=== PATIENT | male | born 1935 | race Caucasian/White ===

== ENCOUNTER 2017-02-19 11:03 | Inpatient (IN) | payer OTHER ==
[~2017-02-19] VITALS: Ht 167.6 cm; Wt 64.6 kg
--- NOTE | ~2017-02-19 | EKG ---
[place], [place] ELECTROCARDIOGRAM REPORT NAME: RICO CATALAN UNIT #: [id number] ROOM: 523 DOCTOR: MESFIN ESCALANTE MD BIRTHDATE: [birth year] DOS: 02/20/2017 STUDY DONE: 02/20/2017. TIME: 17:00 p.m. Normal sinus rhythm, left ventricular hypertrophy with secondary ST and T-wave changes, abnormal electrocardiogram. MESFIN ESCALANTE MD CM:EKGRPT:ELECTROCARDIOGRAM REPORT [id number] MESFIN ESCALANTE MD
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
--- NOTE | ~2017-02-19 | PR ---
[place], [place] [facility]GRESS NOTE [id number] UNIT #: [id number] ROOM: 523 DOCTOR: KISHOR HEREDIA MD BIRTHDATE: [birth year] DOS: 02/22/2017 SUBJECTIVE: The patient is resting comfortably, does not have any complaints today, wants to go home. PHYSICAL EXAMINATION: VITAL SIGNS: Graphic trend shows a pressure of 127/73, pulse of 77, respirations 20, temperature 98.4. LUNGS: Diminished breath sounds, clear this morning. HEART: Regular. ABDOMEN: Obese with minimal redness in the PEG tube site. EXTREMITIES: Without any edema. LABORATORY DATA: Chest x-ray yesterday showed decreased vascular congestion, atelectasis, right side atelectasis. Basic metabolic panel this morning, glucose 169, BUN 38, creatinine 1.09, sodium 147, potassium 3.4. ASSESSMENT AND PLAN: 1. Acute diastolic congestive heart failure. The patient will be ordered an echocardiogram tomorrow since he has not had one since last year. The diuretic dosage has been cut down because of the rising BUN. He is diuresed nicely and the congestive heart failure seems to be resolving. 2. Right lower-lobe infiltrate on IV antibiotics. 3. MRSA of the nares on Bactroban ointment. The patient is high risk for aspirations, got the PEG tube going, has PEG tube with PEG feeding, which he is tolerating well. He is going to have a speech study tomorrow, then after that is done, should be able to go back home. KISHOR HEREDIA MD CM:PNTRANS [phone] KISHOR HEREDIA MD 02/23/17 1023 interface
--- NOTE | ~2017-02-19 | PR ---
[place], [place] PROGRESS NOTE NAME: RICO CATALAN [facility] #: [id number] UNIT #: [id number] ROOM: 523 DOCTOR: KISHOR HEREDIA MD BIRTHDATE: [birth year] DOS: SUBJECTIVE: The patient is about the same, does not have any new complaints. OBJECTIVE: VITAL SIGNS: Graphic trend shows a blood pressure 132/84, pulse of 98, respirations 20, temperature 98.1. LUNGS: Diminished breath sounds, scattered rhonchi. HEART: Regular. ABDOMEN: Obese. PEG tube in place. EXTREMITIES: Without any edema. ASSESSMENT AND PLAN: 1. Acute exacerbation of chronic obstructive pulmonary disease, on IV steroids. 2. Acute diastolic congestive heart failure, on diuretics. Echocardiogram is pending. 3. Swallowing with possibility of aspiration will need to be raised, we will ask Speech for an evaluation. 4. Hypokalemia. Supplementation to be given. KISHOR HEREDIA MD CM:PNTRANS [phone] KISHOR HEREDIA MD 02/22/17 0059 interface
--- NOTE | ~2017-02-19 | PR ---
[place], [place] PROGRESS NOTE NAME: RICO CATALAN [facility] #: [id number] UNIT #: [id number] ROOM: 523 DOCTOR: KISHOR HEREDIA MD BIRTHDATE: [birth year] DOS: 02/24/2017 SUBJECTIVE: The patient is doing fine without any complaints this morning. OBJECTIVE: VITAL SIGNS: Graphic trend shows a pressure of 126/68, pulse of 81, respirations 20, temperature 98.0. LUNGS: Clear. HEART: Regular. ABDOMEN: Obese, soft with a PEG in place. EXTREMITIES: Without any edema. LABORATORY DATA: This morning shows a BMP: Glucose 117, BUN 35, creatinine 0.90. Electrolytes were normal. WBC count is 5.8, hemoglobin 11.2, hematocrit 36.7. Routine culture of the PEG site is revealing Klebsiella pneumoniae, which is sensitive to floxins. Chest x-ray shows clearing of the right lower lobe pneumonia. ASSESSMENT AND PLAN: 1. Acute diastolic congestive heart failure, improved and stable. 2. Right basilar atelectasis with pneumonia with partial clearing. 3. High risk of aspiration. 4. Klebsiella pneumoniae of the PEG site. The patient is stable and can be discharged on p.o. antibiotics and diuretics. KISHOR HEREDIA MD CM:PNTRANS [id number] KISHOR HEREDIA MD 02/25/17 0046 interface
--- NOTE | ~2017-02-19 | DS ---
[place], [place] DISCHARGE SUMMARY NAME: RICO CATALAN [facility] #: [id number] UNIT #: [id number] ROOM: 523 DOCTOR: KISHOR HEREDIA MD BIRTHDATE: [birth year] DOS: 02/24/2017 DIAGNOSES: 1. Pneumonia right lower lobe, improved. 2. Diastolic congestive heart failure. 3. Methicillin-resistant Staphylococcus aureus of the nares. 4. Klebsiella of the PEG site. 5. Encephalopathy, possible hypoxic. 6. High risk for aspiration. 7. Chronic obstructive pulmonary disease with chronic respiratory failure, oxygen dependent. HOSPITAL COURSE: The patient is very well known to us, comes in with complaints of difficulty breathing. Please refer to H and P dictated by Dr. Granados for further details. He was found to have acute diastolic CHF and was placed on diuretics. Chest x-ray also showed a right lower lobe pneumonia, the patient also was placed on IV antibiotics. Cultures of the nares as well as PEG site was ordered. The PEG site appears to be slightly red. DVT prophylaxis was given. The patient was seen by Dr. Lane, his group, and agreed with the treatment plan. Echocardiogram was ordered and I do not have the results yet. The repeat chest x-ray shows clearing of the pneumonia and the CHF. Speech Therapy did see him and suggested continued n.p.o. status until when that he can start pureed diet when he goes home and his strength improves. This morning, his repeat chest x-ray shows clearing. His labs are all within normal limits. The plan therefore is to discharge him to home to follow up as an outpatient. DISCHARGE MEDICATIONS: Will be metoprolol 25 b.i.d., Bactroban ointment for local application twice a day to the nares and the PEG site, Bumex 1 mg daily, Cipro 500 b.i.d. for 5 days, Plavix 75 daily, temazepam 30 at bedtime, omeprazole 20 daily, vitamin D 50,000 units once a week, citalopram 40 daily, budesonide 0.5 b.i.d., fenofibrate 200 mg daily, DuoNeb q.i.d. p.r.n., [place] 5 every day p.r.n., Xanax 0.5 twice daily p.r.n. [place], [place] DISCHARGE SUMMARY NAME: RICO CATALAN UNIT #: [id number] ROOM: 523 DOCTOR: KISHOR HEREDIA MD BIRTHDATE: [birth year] KISHOR HEREDIA MD CM:DISCHHONG [id number] KISHOR HEREDIA MD 02/24/17 1546 interface
--- NOTE | ~2017-02-19 | PR ---
[place], [place] PROGRESS NOTE NAME: RICO CATALAN [facility] #: [id number] UNIT #: [id number] ROOM: 523 DOCTOR: KISHOR HEREDIA MD BIRTHDATE: [birth year] DOS: 02/23/2017 SUBJECTIVE: The patient is about the same, does not have any new complaints. OBJECTIVE: VITAL SIGNS: Graphic trend shows a pressure of 144/89, pulse of 101, respirations 20, temperature 98.6. LUNGS: Clear. HEART: Regular. ABDOMEN: Obese, soft. EXTREMITIES: Without any edema. ASSESSMENT AND PLAN: 1. Acute diastolic congestive heart failure, improved. 2. Right lower lobe pneumonia with possible aspiration, which is also clinically much improved. We will repeat a chest x-ray today to make sure it is clearing. 3. High risk of aspiration. Speech did do work on him this morning. They felt that the patient could start back on his pleasure feeds when he gets home. Otherwise, continue his n.p.o. status. Plan to discharge him to home tomorrow. Routine labs and chest x-ray will be ordered today. KISHOR HEREDIA MD CM:PNTRANS [id number] KISHOR HEREDIA MD 02/24/17 0754 interface
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
[~2017-02-19 11:03] MED LIST: 'XANAX0.5 MG PO; ACYCLOVIR400 MG PO; ANAPROX DS550 MG PO; ARTIFICIAL TEA1 EACH OP; BACTROBAN OINT0.9 GM NAS; CEFUROXIME AXE250 MG PO; CELEXA20 MG PO; CELEXA40 MG PO; CIPRO500 MG PO; CIPROFLOXACIN500 M4 PO; CLOPIDOGREL BIS75 MG PO; DARVOCET N 1001 TAB PO; DELTASONE10 MG PO; DIFLUCAN100 MG PO; DUONEB 3 MG/3 ML3 M1 INH; FA-8800 MCG; FISH OIL 1,2001 EAC1 PO; FOLIC ACID0.4 MG PO; FUROSEMIDE20 M1 PO; GEMCOR600 MG PO; HYCODAN/HYDROMET5 ML PO; HYDROCODONE/ACE1 T14 PO; LEVOFLOXACIN500 MG PO; MAREPA1200 MG PO; MUCINEX600 MG PO; Motrin,Rufen400 MG PO; NOVAPLUS SOLU-M40 MG IV; OMEPRAZOLE D/R20 MG PO; PHARMASSURE FO0.4 MG PO; PREDNISONE2.5 MG PO; PRILOSEC20 M2 PO; PULMICORT RESP0.5 MG INH; PULMICORT0.5 MG/2 M NEB; RESTORIL30 MG PO; SERTRALINE50 MG PO; SIMVASTATIN10 MG PO; TRICOR145 MG PO; TRICOR48 MG PO; VANCO 1 GR1 GM/250 M IV; VANCO 750750 MG/250 IV; VITAMIN D1000 IU PO; VITAMIN D50000 I3 PO; ZOCOR10 MG PO; ZOLOFT100 MG PO
[2017-02-19 11:16] VITALS: BP 116/73
[2017-02-19 11:58] LABS: BASO % 0.2 % (0.0-1.0); EOS # 0.3 10*3/uL (0.0-0.4); EOS % 4.5 % (1.0-4.0); HEMATOCRIT 36.5 % (42.0-52.0); HEMOGLOBIN 11.3 g/dl (14.0-18.0); LYMPH # 1.1 10*3/uL (1.3-4.4); LYMPH % 19.2 % (27.0-41.0); MEAN CORPUSCULAR HGB 27.6 pg (27.0-31.0); MEAN PLATELET VOLUME 13.8 fl (9.6-12.3); MONO # 0.5 10*3/uL (0.1-1.0); MONO % 8.2 % (3.0-9.0); NEUT # 3.8 10*3/uL (2.3-7.9); NEUT % 67.7 % (47.0-73.0); PLATELET COUNT AUTOMATED 101 10*3/uL (130-400); RED CELL DISTRI WIDTH 15.1 % (0-14.5); WHITE BLOOD COUNT 5.6 10*3/uL (4.8-10.8)
[2017-02-19 12:14] LABS: ALBUMIN 3.4 gm/dl (3.1-4.5); ALKALINE PHOSPHATASE 50 U/L (45-117); BILIRUBIN, TOTAL 0.4 mg/dl (0.2-1.0); BUN 21 mg/dl (7-24); CARBON DIOXIDE 28 mmol/L (21-32); CHLORIDE 104 mmol/L (98-107); EST GLOM FILT AFRICAN AMERICAN > 60 ml/min; GLUCOSE 155 mg/dL (65-99); POTASSIUM 3.8 mmol/L (3.5-5.1); SGOT/AST 17 IU/L (3-35); SGPT/ALT 15 U/L (12-78); SODIUM 140 mmol/L (136-145); TOTAL PROTEIN 7.1 gm/dL (6.4-8.2)
[2017-02-19 13:01] LABS: BILIRUBIN NEGATIVE (NEGATIVE); BLOOD NEGATIVE (NEGATIVE); CLARITY SL CLOUDY (CLEAR); COLOR YELLOW (YELLOW); GLUCOSE NEGATIVE (NEGATIVE); KETONE NEGATIVE (NEGATIVE); LEUKO ESTERASE NEGATIVE (NEGATIVE); NITRITE NEGATIVE (NEGATIVE); PH 5.5 (5.0-9.0); PROTEIN NEGATIVE (NEGATIVE); SPECIFIC GRAVITY <= 1.005 (1.005-1.030); UROBILINOGEN 0.2 E.U./dl (0.2-1.0)
[2017-02-19 13:08] LABS: BACTERIA TRACE; EPITHELIAL CELLS 0-2; URINE REFLEX COMMENT NO (NO)
[2017-02-19 14:57] VITALS: BP 108/66
[2017-02-19 20:46] VITALS: BP 100/59
[2017-02-20] VITALS: BP 106/65
[2017-02-20 06:46] LABS: BUN 27 mg/dl (7-24); CARBON DIOXIDE 29 mmol/L (21-32); CHLORIDE 102 mmol/L (98-107); EST GLOM FILT AFRICAN AMERICAN > 60 ml/min; GLUCOSE 132 mg/dL (65-99); POTASSIUM 3.8 mmol/L (3.5-5.1); SODIUM 141 mmol/L (136-145)
[2017-02-20 08:00] VITALS: BP 108/82
[2017-02-20 12:00] VITALS: BP 125/80
[2017-02-20 16:00] VITALS: BP 131/69
[2017-02-20 20:00] VITALS: BP 124/77
[2017-02-21] VITALS: BP 132/84
[2017-02-21 06:53] LABS: CARBON DIOXIDE 31 mmol/L (21-32); CHLORIDE 105 mmol/L (98-107); EST GLOM FILT AFRICAN AMERICAN > 60 ml/min; GLUCOSE 153 mg/dL (65-99); POTASSIUM 3.4 mmol/L (3.5-5.1); SODIUM 145 mmol/L (136-145)
[2017-02-21 07:09] LABS: BUN 36 mg/dl (7-24)
[2017-02-21 08:00] VITALS: BP 122/80
[2017-02-21 12:00] VITALS: BP 121/76
[2017-02-21 16:00] VITALS: BP 133/81
[2017-02-21 20:00] VITALS: BP 106/60
[2017-02-22] VITALS: BP 127/73
[2017-02-22 06:17] LABS: BUN 38 mg/dl (7-24); CARBON DIOXIDE 30 mmol/L (21-32); CHLORIDE 106 mmol/L (98-107); EST GLOM FILT AFRICAN AMERICAN > 60 ml/min; GLUCOSE 169 mg/dL (65-99); POTASSIUM 3.4 mmol/L (3.5-5.1); SODIUM 147 mmol/L (136-145)
[2017-02-22 08:00] VITALS: BP 102/90
[2017-02-22 12:00] VITALS: BP 116/65
[2017-02-22 16:00] VITALS: BP 127/78
[2017-02-22 20:00] VITALS: BP 113/53
[2017-02-23] VITALS: BP 97/63
[2017-02-23 06:47] LABS: BASO % 0.2 % (0.0-1.0); EOS # 0.3 10*3/uL (0.0-0.4); EOS % 4.3 % (1.0-4.0); HEMATOCRIT 38.2 % (42.0-52.0); HEMOGLOBIN 11.7 g/dl (14.0-18.0); LYMPH # 1.4 10*3/uL (1.3-4.4); LYMPH % 22.7 % (27.0-41.0); MEAN CELL VOLUME 90.7 fl (80.0-94.0); MEAN CORPUSCULAR HGB 27.8 pg (27.0-31.0); MEAN CORPUSCULAR HGB CONC 30.6 g/dl (33.0-37.0); MONO # 0.6 10*3/uL (0.1-1.0); NEUT % 63.6 % (47.0-73.0); PLATELET COUNT AUTOMATED 95 10*3/uL (130-400); RED BLOOD COUNT 4.21 10*6/uL (4.50-5.90); RED CELL DISTRI WIDTH 15.2 % (0-14.5); WHITE BLOOD COUNT 6.3 10*3/uL (4.8-10.8)
[2017-02-23 07:12] LABS: EST GLOM FILT AFRICAN AMERICAN > 60 ml/min
[2017-02-23 08:00] VITALS: BP 140/74
[2017-02-23 12:00] VITALS: BP 144/89
[2017-02-23] MEDS ORDERED: BACTROBAN OINT0.9 GM NAS (14:07)
[2017-02-23] MEDS ORDERED: METOPROLOL SUCC25 M2 PO (14:07)
[2017-02-23] MEDS ORDERED: BACTROBAN OINT0.9 GM T (14:07)
[2017-02-23] MEDS ORDERED: DOXYCYCLINE100 M3 PO (14:08)
[2017-02-23] MEDS ORDERED: BUMETANIDE1 MG PO (14:08)
[2017-02-23 16:00] VITALS: BP 133/69
[2017-02-23 20:00] VITALS: BP 135/78
[2017-02-24] VITALS: BP 126/68
[2017-02-24 07:03] LABS: BASO % 0.2 % (0.0-1.0); EOS # 0.2 10*3/uL (0.0-0.4); EOS % 4.1 % (1.0-4.0); HEMATOCRIT 36.7 % (42.0-52.0); HEMOGLOBIN 11.2 g/dl (14.0-18.0); LYMPH # 1.2 10*3/uL (1.3-4.4); LYMPH % 20.5 % (27.0-41.0); MEAN CELL VOLUME 90.2 fl (80.0-94.0); MEAN CORPUSCULAR HGB 27.5 pg (27.0-31.0); MEAN CORPUSCULAR HGB CONC 30.5 g/dl (33.0-37.0); MEAN PLATELET VOLUME 13.9 fl (9.6-12.3); MONO # 0.5 10*3/uL (0.1-1.0); MONO % 8.1 % (3.0-9.0); NEUT # 3.9 10*3/uL (2.3-7.9); NEUT % 66.8 % (47.0-73.0); PLATELET COUNT AUTOMATED 94 10*3/uL (130-400); RED BLOOD COUNT 4.07 10*6/uL (4.50-5.90); RED CELL DISTRI WIDTH 15.3 % (0-14.5); WHITE BLOOD COUNT 5.8 10*3/uL (4.8-10.8)
[2017-02-24 07:15] LABS: BUN 35 mg/dl (7-24); CARBON DIOXIDE 28 mmol/L (21-32); CHLORIDE 111 mmol/L (98-107); EST GLOM FILT AFRICAN AMERICAN > 60 ml/min; GLUCOSE 117 mg/dL (65-99); POTASSIUM 3.7 mmol/L (3.5-5.1); SODIUM 144 mmol/L (136-145)
[2017-02-24] MEDS ORDERED: CIPRO500 MG PO (07:24)
[2017-02-24 08:00] VITALS: BP 132/72
== END 2017-02-24 11:38 | disposition home health service (06) | DRG 177 ==
LOC: ED 11:03 → EDHOLD 15:13 → 5E 15:13
PROVIDERS: Internal Medicine; Internal Medicine Critical Care Medicine; Registered Nurse
DX: J69.0 Pneumonitis due to inhalation of food and vomit (principal); G93.41 Metabolic encephalopathy; I50.31 Acute diastolic (congestive) heart failure; J96.11 Chronic respiratory failure with hypoxia; G93.1 Anoxic brain damage, not elsewhere classified; J44.1 Chronic obstructive pulmonary disease with (acute) exacerbation; R13.12 Dysphagia, oropharyngeal phase; I11.0 Hypertensive heart disease with heart failure; B95.62 Methicillin resistant Staphylococcus aureus infection as the cause of diseases classified elsewhere; B96.1 Klebsiella pneumoniae [K. pneumoniae] as the cause of diseases classified elsewhere; G89.29 Other chronic pain; F17.210 Nicotine dependence, cigarettes, uncomplicated; F32.9 Major depressive disorder, single episode, unspecified; I25.10 Atherosclerotic heart disease of native coronary artery without angina pectoris; E87.6 Hypokalemia; M54.9 Dorsalgia, unspecified; Z96.642 Presence of left artificial hip joint; Z85.46 Personal history of malignant neoplasm of prostate; Z95.1 Presence of aortocoronary bypass graft; Z99.81 Dependence on supplemental oxygen; Z95.0 Presence of cardiac pacemaker; Z88.2 Allergy status to sulfonamides; Z93.1 Gastrostomy status

== ENCOUNTER → 2017-05-29 | Outpatient (CLI) | payer OTHER ==
[~2017-05-29] MED LIST changes: +BACTROBAN OINT0.9 GM T; +BUMETANIDE1 MG PO; +DOXYCYCLINE100 M3 PO; +METOPROLOL SUCC25 M2 PO
--- NOTE | ~2017-05-29 | SLPPN ---
[place], [place] [employer] PROGRESS NOTE NAME: RICO CATALAN UNIT #: [id number] ROOM: DOCTOR: KISHOR HEREDIA MD Speech Language Pathology Treatment Note Page 1 1 of Patient Name: RICO CATALAN Date: 05/29/2017 03:27 PM : 1935 SOC Date: 05/28/2017 Provider: [facility] Provider #: [id number] Treating Clinician: Maria Victoria Tyler CCC=[employer] Referring Physician: KISHOR HEREDIA Onset Date Description Code Primary Diagnosis: 12/14/2015 787.22 DYSPHAGIA, OROPHARYNGEAL PHASE Time In: 11:00 AM Time Out: 12:00 PM [employer] Interventions and CPT Codes Consisted of: CPT Code Modifiers Minutes Units MOTION FLUOROSCOPY/SWALLOW 91212 60 1 Total Minutes: 60 Total Timed Minutes: 0 Total Untimed Minutes: 60 Total Units: 1 Total Timed Units: 0 Total Untimed Units: 1 05/29/2017 3:27:58 PM Maria Victoria Tyler CCC=[employer] Date/Time State License #: [id number] CM:CHIVO [id number] [facility] THERAPY [place]
--- NOTE | ~2017-05-29 | SLPIE ---
[place], [place] ELECTROMECHANIC INITIAL EVALUATION NAME: RICO CATALAN UNIT #: [id number] ROOM: DOCTOR: KISHOR HEREDIA MD Speech Language Pathology Initial Evaluation Page 1 1 of Patient Name: RICO CATALAN Date: 05/29/2017 03:24 PM : 1935 SOC Date: 05/28/2017 [facility] Provider #: [id number] Treating Clinician: Maria Victoria Tyler CCC=ELECTROMECHANIC Referring Physician: KISHOR HEREDIA Patient Information Address: [address] [place] [address] Physician: KISHOR HEREDIA Physician #: [facility], [facility], Zip: [place], [place] [address] Occupation: Unknown # of Approved Visits: 0 Gender: Male Package Reinspector: BAYLEE CATALAN Rehabilitation Information / History Onset Date Code Description Primary Diagnosis: 12/14/2015 787.22 DYSPHAGIA, OROPHARYNGEAL PHASE Subjective Comments: Patient identified by name and date of . Initial evaluation created to initiate the electronic medical record. Please see [employer] for details. Clinical Findings Functional Goals Functional Limitation Reporting Swallowing G8996 - Swallowing functional limitation, current status at therapy episode outset and at reporting intervals Current Status: CM - At least 80 percent but less than 100 percent impaired, limited or restricted G8997 - Swallowing functional limitation, projected goal status, at therapy episode outset, at reporting intervals, and at discharge or to end reporting Goal Status: CM - At least 80 percent but less than 100 percent impaired, limited or restricted G8998 - Swallowing functional limitation, discharge status, at discharge from therapy or to end reporting Discharge Status: CM - At least 80 percent but less than 100 percent impaired, limited or restricted 05/29/2017 3:27:05 PM Maria Victoria Tyler CCC=ELECTROMECHANIC Date/Time [place], [place] ELECTROMECHANIC INITIAL EVALUATION NAME: RICO CATALAN UNIT #: [id number] ROOM: DOCTOR: KISHOR HEREDIA MD [facility] License #: [id number] CM:CARLOS [id number] IS THERAPY [facility]
--- NOTE | ~2017-05-29 | PROC NOTE ---
[place], [place] PROCEDURE NOTE [id number] UNIT #: [id number] ROOM: DOCTOR: KRISTAN RANDALL BIRTHDATE: [birth year] DOS: 05/29/2017 MODIFIED BARIUM SWALLOW BACKGROUND HISTORY AND MEDICAL HISTORY: The patient is very familiar to the speech pathology department here in [facility]. He has had several modified barium swallows with the last one completed in 12/2016 with recommendations to continue n.p.o. status; however, to have small pleasure feed trials of pureed as tolerated. The patient was receiving extensive dysphagia therapy in the home environment, but was discharged around December or January 2017 due to plateauing and meeting his max potential. METHODS AND MATERIALS: The patient was able to sit in a regular chair and was viewed in the lateral plane. This study was done in conjunction with Dr. Stauffer. The patient was able to follow simple commands. He was administered applesauce mixed with barium paste, pudding mixed with barium paste, a banana mixed with barium paste, and honey liquid via cup. ORAL PHASE: The patient demonstrated [id number]-[id number] reduced oral phase with moderate to severely poor ability to form and propel a cohesive bolus. The applesauce was moderately impaired and he had some premature loss into the vallecula during oral prep, it was piecemeal deglutition, not a nice bolus. However, the swallow was triggered in the vallecula within 3 seconds when it filled up and there was mild residue in the vallecula. ENGINEER AND GEOLOGIST cued him to take a dry swallow and it did clear to trace amounts. Honey consistency fell with severely reduced bolus cohesion into the pharyngeal phase with severely reduced ability to form and propel cohesive bolus. The patient was given a banana with barium paste. He was edentulous, reported he forgot his dentures and was unable to chew it and requested to spit it out. He then had a mild to moderate amount of residue in his mouth, which was barium, which a few were fell below was aspirated and it was suspected on the paste during the swallow silently. PHARYNGEAL PHASE: The patient demonstrated mild vallecula residue with puree textures, which was cleared to trace amounts with ENGINEER AND GEOLOGIST cues for dry effortful swallows. There was no aspiration or penetration on the pureed. The patient did aspirate during the swallow silently but it was suspected on residue from the barium paste with the banana. He spit the banana out and then swallowed, some barium paste from the banana was aspirated silently during the swallow in a moderate amount. The patient aspirated a moderate amount of honey liquid during the swallow with severely reduced oral control as well as reduced laryngeal elevation silently, no cough, no throat clear. RECOMMENDATIONS AND IMPRESSION: Based on the above, the recommendations remain the same that the patient should continue with pleasure feeds of pureed foods as tolerated, should be monitored by a physician for clinical signs and symptoms of aspiration. It is recommended the patient continue with enteral means of nutrition and hydration, especially hydration as he is not able to tolerate any liquids and he will not be able to maintain hydration orally. Thank you for this referral. Therapy is not recommended as the patient has been [place], [place] PROCEDURE NOTE NAME: RICO CATALAN UNIT #: [id number] ROOM: DOCTOR: KRISTAN RANDALL BIRTHDATE: [birth year] seen for extensive dysphagia therapy and has not made any progress and was discharged around December and January with no changes and no progress noted. Thank you for this referral. KRISTAN RANDALL CM:PROCNOTE:PROCEDURE NOTE [id number] KRISTAN RANDALL
--- NOTE | ~2017-05-29 | SLPPOC ---
[place], [place] TANK INSULATOR RUBBER PLAN OF CARE NAME: IRCO CATALAN UNIT #: [id number] ROOM: DOCTOR: KISHOR HEREDIA MD Speech Language Pathology Plan of Care Page 1 1 (Initial Evaluation) of Patient Name: RICO CATALAN Date: 05/29/2017 03:24 PM : 1935 SOC Date: 05/28/2017 [facility] Provider #: [id number] Treating Clinician: Maria Victoria Tyler CCC=TANK INSULATOR RUBBER Referring Physician: KISHOR HEREDIA Visits From SOC: 1 Onset Date Description Code Primary Diagnosis: 12/14/2015 787.22 DYSPHAGIA, OROPHARYNGEAL PHASE Subjective Comments: Patient identified by name and date of . Initial evaluation created to initiate the electronic medical record. Please see [employer] for details. Initial Level Goals Functional Limitation Reporting Swallowing G8996 - Swallowing functional limitation, current status at therapy episode outset and at reporting intervals Current Status: CM - At least 80 percent but less than 100 percent impaired, limited or restricted G8997 - Swallowing functional limitation, projected goal status, at therapy episode outset, at reporting intervals, and at discharge or to end reporting Goal Status: CM - At least 80 percent but less than 100 percent impaired, limited or restricted G8998 - Swallowing functional limitation, discharge status, at discharge from therapy or to end reporting Discharge Status: CM - At least 80 percent but less than 100 percent impaired, limited or restricted 05/29/2017 3:27:05 PM KISHOR HEREDIA Date/Time Maria Victoria Tyler CCC=TANK INSULATOR RUBBER Date I certify the need for these services furnished under this plan of treatment while under my care. State License #: [id number] CM:MAURISIOPOC [id number] 1535 IS THERAPY [facility]
== END | disposition home or self-care (01) ==
LOC: RAD/SH 05-28 02:58
DX: R13.10 Dysphagia, unspecified (principal)

== ENCOUNTER 2017-06-12 09:42 | Emergency (ER) | payer OTHER ==
[~2017-06-12] VITALS: Wt 68.9 kg
[2017-06-12 09:51] VITALS: BP 128/79
== END 2017-06-12 13:40 | disposition home or self-care (01) ==
LOC: ED 09:42
DX: S32.000A Wedge compression fracture of unspecified lumbar vertebra, initial encounter for closed fracture (principal); R03.0 Elevated blood-pressure reading, without diagnosis of hypertension; I50.9 Heart failure, unspecified; F17.200 Nicotine dependence, unspecified, uncomplicated; J44.9 Chronic obstructive pulmonary disease, unspecified; Z88.2 Allergy status to sulfonamides; Z79.899 Other long term (current) drug therapy; W22.03XA Walked into furniture, initial encounter; Y93.89 Activity, other specified; Y92.9 Unspecified place or not applicable; Y99.9 Unspecified external cause status

== ENCOUNTER → 2017-07-01 | Day surgery (SDC) | payer OTHER ==
[~2017-07-01] VITALS: Ht 167.6 cm; Wt 68.5 kg
--- NOTE | ~2017-07-01 | O ---
[place], [place] OPERATIVE NOTE NAME: RICO CATALAN UNIT #: [id number] ROOM: DOCTOR: MOI DIA MD BIRTHDATE: [birth year] DOS: GASTROENDOSCOPIC REPORT. INDICATIONS: This is an 81-year-old patient who has presented with chief complaint of dysphagia, was attempting to eat. He wants his PEG tube out; however, we have discussed with his . Apparently, the is concerned that there is a new change in his dysphagia issues and he has not been able to at all taking any food down. ALLERGIES: SULFA. FAMILY HISTORY: Noncontributory. PAST MEDICAL HISTORY: Hypertension, diabetes mellitus, hypercholesterolemia, dementia, wheelchair bound, neurogenic dysphagia, CVA. PAST SURGICAL HISTORY: Pacemaker, PEG tube and left hip. PROCEDURE: Today's procedure part of investigation is panendoscopy plus brush esophagus sampling. PREMEDICATIONS: Versed and Diprivan. SCOPE: Olympus XQ-10 video pediatric. REPORT: After putting the patient in the left lateral position and after application of lubricant to the scope, the scope was introduced. Thereafter, under direct visualization, I advanced throughout the length of the esophagus with some difficulty because of upper esophageal stricture. However, esophagus expresses diffuse esophageal moniliasis. Pioneer for fungal study was done. Gastric pouch was entered. Duodenal bulb, second and third part within normal limits. Photographic series from esophagus was obtained. Gastritis noticed. The patient extubated, tolerated procedure well. IMPRESSION: Upper esophageal stricture, esophageal moniliasis, status post brush for fungal study. PLAN: 1. We will keep the PEG tube in place since it is intact and he needs for his nutrition. 2. I am going to give him 100 mg of Diflucan 1 every day for 10 days and follow up as outpatient. [place], [place] OPERATIVE NOTE NAME: RICO CATALAN UNIT #: [id number] ROOM: DOCTOR: MOI DAI MD BIRTHDATE: [birth year] MOI DIA MD CM:OPRECORD:OPERATIVE NOTE [id number] KISHOR DIA MD 07/01/17 1249 interface
[2017-07-01 08:08] VITALS: BP 116/71
[2017-07-01 08:56] VITALS: BP 113/58
[2017-07-01 09:11] VITALS: BP 127/67
== END | disposition home or self-care (01) ==
LOC: SDC 06-29 14:00
DX: K22.2 Esophageal obstruction (principal); E11.9 Type 2 diabetes mellitus without complications; E78.00 Pure hypercholesterolemia, unspecified; Z86.73 Personal history of transient ischemic attack (TIA), and cerebral infarction without residual deficits; Z95.0 Presence of cardiac pacemaker; Z99.3 Dependence on wheelchair; B37.81 Candidal esophagitis; Z88.2 Allergy status to sulfonamides; I25.10 Atherosclerotic heart disease of native coronary artery without angina pectoris; J44.9 Chronic obstructive pulmonary disease, unspecified; Z85.46 Personal history of malignant neoplasm of prostate; F41.9 Anxiety disorder, unspecified; F32.9 Major depressive disorder, single episode, unspecified; I50.9 Heart failure, unspecified; I11.0 Hypertensive heart disease with heart failure; Z95.5 Presence of coronary angioplasty implant and graft; Z98.890 Other specified postprocedural states; Z82.49 Family history of ischemic heart disease and other diseases of the circulatory system

== ENCOUNTER → 2018-01-05 | Outpatient (CLI) | payer OTHER ==
[2018-01-06 17:07] LABS: HLA CLASS 1 ANTIBODY Negative (Negative); IIb/IIIa ANTIBODY Negative (Negative); Ia/IIa ANTIBODY Negative (Negative); Ib/IX ANTIBODY Negative (Negative)
== END | disposition home or self-care (01) ==
LOC: LAB 12:50
PROVIDERS: Internal Medicine Hematology & Oncology
DX: D69.6 Thrombocytopenia, unspecified (principal)

== ENCOUNTER → 2018-03-24 | Day surgery (SDC) | payer OTHER ==
[~2018-03-24] VITALS: Ht 170.1 cm; Wt 59.9 kg
--- NOTE | ~2018-03-24 | CON ---
[place], [place] REPORT OF CONSULTATION [id number] UNIT #: [id number] ROOM: DOCTOR: IFEOMA GRESHAMMOI BIRTHDATE: [birth year] DOS: 03/24/2018 GASTROENDOSCOPIC CONSULTATION REPORT HISTORY OF PRESENT ILLNESS: The patient has presented with chief complaint of malfunctioning PEG tube. Apparently, the has been taking care of him at home. The patient is an 82-year-old with neurogenic dysphagia, status post previous PEG placement. Meanwhile, the patient has complaint of suprapubic pain, which has been found to be abscess formation. PAST MEDICAL HISTORY: Oropharyngeal dysphagia, neurogenic origin, history of esophageal stricture, status post multiple dilations, hypertension, major depression, failure to thrive, essentially bedridden, congestive heart failure, and respiratory insufficiency. PAST SURGICAL HISTORY: Prostate CA, pacemaker, PEG tube, and left hip arthroplasty. SOCIAL HISTORY: History of smoking, nonalcohol consumer. ALLERGIES: TO SULFA. MEDICATIONS: List reviewed. REVIEW OF SYSTEMS: Not much can be obtained from him meaningfully. Discussed the case with the . PHYSICAL EXAMINATION: GENERAL: Well-nourished, slow and bedridden. HEENT: Head is normocephalic, nontraumatic. Mouth, edentulous. NECK: Supple. No thyromegaly. CHEST: Symmetric anatomy, COPD pattern. HEART: Normal sinus rhythm. No gallop, no murmur. ABDOMEN: Obese, soft. Large broken PEG tube in place. Bowel sounds present. A suprapubic abscess was noticed. EXTREMITIES: Stasis dermatitis of lower extremities. NEUROLOGIC: Alert and slow; however, still oriented to his family. Broken malfunctioning PEG tube. At this stage, the sterile condition of the abdomen with Betadine, the existing broken PEG tube percutaneously pulled and OLGA LIDIA size 20 was replaced, inflated with 15 mL of normal saline. Additional straps were added around the external dish to secure the tube, patency checked. The patient extubated. The patient tolerated the procedure well. IMPRESSION: Neurogenic dysphagia, malfunctioning existing PEG tube, status post removal, replacement with a new G-tube. PLAN: Ready to be discharged and utilize the new G-tube for feedings and medications and supportive management. [place], [place] REPORT OF CONSULTATION NAME: RICO CATALAN UNIT #: [id number] ROOM: DOCTOR: IFEOMA GRESHAM,MOI BIRTHDATE: [birth year] MOI DIA MD CM:CONSTR:REPORT OF CONSULTATION 1313 03/24/18 1407 interface
[2018-03-24 10:05] VITALS: BP 131/97
[2018-03-24 12:50] VITALS: BP 155/90
[2018-03-24 13:05] VITALS: BP 149/83
== END | disposition home or self-care (01) ==
LOC: SDC 03-23 04:36
DX: K94.23 Gastrostomy malfunction (principal); R13.19 Other dysphagia; F32.9 Major depressive disorder, single episode, unspecified; I50.9 Heart failure, unspecified; I11.0 Hypertensive heart disease with heart failure; Z85.46 Personal history of malignant neoplasm of prostate; Z88.2 Allergy status to sulfonamides; L02.211 Cutaneous abscess of abdominal wall; I25.10 Atherosclerotic heart disease of native coronary artery without angina pectoris; Z95.0 Presence of cardiac pacemaker; Z86.73 Personal history of transient ischemic attack (TIA), and cerebral infarction without residual deficits; F41.9 Anxiety disorder, unspecified; Z87.891 Personal history of nicotine dependence; Z79.01 Long term (current) use of anticoagulants; Z95.1 Presence of aortocoronary bypass graft; J44.9 Chronic obstructive pulmonary disease, unspecified; Z98.890 Other specified postprocedural states

== ENCOUNTER → 2018-04-06 | Outpatient (CLI) | payer OTHER ==
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
--- NOTE | ~2018-04-06 | SLPPOC ---
[place], [place] TUBE MAN PLAN OF CARE NAME: RICO CATALAN UNIT #: [id number] ROOM: DOCTOR: MOI DIA MD Speech Language Pathology Plan of Care Page 1 1 (Initial Evaluation) of Patient Name: RICO CATALAN Date: 04/06/2018 11:38 AM : 1935 SOC Date: 04/06/2018 [facility]: [facility] Provider #: [id number] Treating Clinician: DALLAS Burger-TUBE MAN Referring Physician: MOI DIA 1 Visits From SOC: Onset Date Description Code Primary Diagnosis: 04/06/2018 A0000 NO DIAGNOSIS SENT TO THE [facility] INTERFACE Subjective Comments: Initial evaluation created to initiate the electronic medical record. Please see [employer] for details. Initial Level Goals Functional Limitation Reporting Swallowing G8996 - Swallowing functional limitation, current status at therapy episode outset and at reporting intervals Current Status: CL - At least 60 percent but less than 80 percent impaired, limited or restricted G8997 - Swallowing functional limitation, projected goal status, at therapy episode outset, at reporting intervals, and at discharge or to end reporting Goal Status: CL - At least 60 percent but less than 80 percent impaired, limited or restricted G8998 - Swallowing functional limitation, discharge status, at discharge from therapy or to end reporting Discharge Status: CL - At least 60 percent but less than 80 percent impaired, limited or restricted 04/06/2018 11:39:31 AM MOI DIA Date/Time DALLAS Burger-TUBE MAN Date I certify the need for these services furnished under this plan of treatment while under my care. State License #: [id number] CM:SLPPOC 1141 1141 IS THERAPY [facility]
--- NOTE | ~2018-04-06 | SLPIE ---
[place], [place] [facility] INITIAL EVALUATION NAME: RICO CATALAN UNIT #: [id number] ROOM: DOCTOR: BRANDO DIA [facility] Language Pathology Initial Evaluation Page 1 1 of Patient Name: RICO CATALAN Date: 04/06/2018 11:38 AM : 1935 SOC Date: 04/06/2018 [facility]: [facility] Provider #: [id number] Treating Clinician: DALLAS Burger-[facility] Referring Physician: MOI DIA Patient Information Address: [address] [place] [address] Physician: MOI DIA Physician #: [facility], [facility], Zip: [place], [place] [address] Occupation: Unknown # of Approved Visits: 0 Gender: Male Shuttle Truck Driver: BAYLEE CATALAN Rehabilitation Information / History Onset Date Code Description Primary Diagnosis: 04/06/2018 A0000 NO DIAGNOSIS SENT TO THE [facility] INTERFACE Subjective Comments: Initial evaluation created to initiate the electronic medical record. Please see [employer] for details. Rehabilitation Information / History Clinical Findings Functional Goals Functional Limitation Reporting Swallowing G8996 - Swallowing functional limitation, current status at therapy episode outset and at reporting intervals Current Status: CL - At least 60 percent but less than 80 percent impaired, limited or restricted G8997 - Swallowing functional limitation, projected goal status, at therapy episode outset, at reporting intervals, and at discharge or to end reporting Goal Status: CL - At least 60 percent but less than 80 percent impaired, limited or restricted G8998 - Swallowing functional limitation, discharge status, at discharge from therapy or to end reporting Discharge Status: CL - At least 60 percent but less than 80 percent impaired, limited or restricted 04/06/2018 11:39:31 AM DALLAS Burger-[facility] Date/Time [place], [place] [facility] INITIAL EVALUATION NAME: RICO CATALAN UNIT #: [id number] ROOM: DOCTOR: [facility] [id number] CM:CARLOS 1141 1141 IS THERAPY [facility]
--- NOTE | ~2018-04-06 | SLPPN ---
[place], [place] SENIOR ORACLE APPLICATIONS DEVELOPER PROGRESS NOTE NAME: RICO CATALAN UNIT #: [id number] ROOM: DOCTOR: IFEOMA GRESHAM,MOI Speech Language Pathology Treatment Note Page 1 1 of Patient Name: RICO CATALAN Date: 04/06/2018 11:39 AM : 1935 SOC Date: 04/06/2018 [facility] Provider #: [id number] Treating Clinician: DALLAS Burger-SENIOR ORACLE APPLICATIONS DEVELOPER Referring Physician: MOI DIA Onset Date Description Code Primary Diagnosis: 04/06/2018 A0000 NO DIAGNOSIS SENT TO THE [facility] INTERFACE Time In: 10:30 AM Time Out: 11:30 AM SENIOR ORACLE APPLICATIONS DEVELOPER Interventions and CPT Codes Consisted of: CPT Code Modifiers Minutes Units MOTION FLUOROSCOPY/SWALLOW 38547 30 1 Total Minutes: 30 Total Timed Minutes: 0 Total Untimed Minutes: 30 Total Units: 1 Total Timed Units: 0 Total Untimed Units: 1 04/06/2018 11:40:17 AM DALLAS Burger-SENIOR ORACLE APPLICATIONS DEVELOPER Date/Time State License #: [id number] CM:CHIVO 1141 1141 IS THERAPY [facility]
== END | disposition home or self-care (01) ==
LOC: RAD/SH 10:21
DX: R13.10 Dysphagia, unspecified (principal); K22.2 Esophageal obstruction; G45.9 Transient cerebral ischemic attack, unspecified

== ENCOUNTER 2018-06-03 12:27 | Emergency (ER) | payer OTHER ==
[~2018-06-03] VITALS: Ht 167.6 cm; Wt 71.2 kg
[2018-06-03 12:27] VITALS: BP 131/83
== END 2018-06-03 15:32 | disposition home or self-care (01) ==
LOC: ED 12:27
DX: K94.23 Gastrostomy malfunction (principal); J44.9 Chronic obstructive pulmonary disease, unspecified; I50.9 Heart failure, unspecified; Z79.899 Other long term (current) drug therapy; Z88.2 Allergy status to sulfonamides; Z88.1 Allergy status to other antibiotic agents

== ENCOUNTER → 2019-07-13 | Day surgery (SDC) | payer OTHER ==
[~2019-07-13] VITALS: Ht 162.5 cm; Wt 64.4 kg
[~2019-07-13] MED LIST changes: +COUMADIN5 M2 PO; +Carafate1 GM PO; +Coumadin3 MG PO; +DELTASONE2.5 MG PO; +DULCOLAX STOOL100 M1 PO; +FENOFIBRATE145 M1 PO; +HYDROCODONE-AC1 EAC1 PO; +LASIX20 MG PO; +LOPRESSOR25 MG PO; +SENNA8.6 MG PO; +TRAZODONE50 MG PO
--- NOTE | ~2019-07-13 | CON ---
[place], [place] REPORT OF CONSULTATION NAME: RICO CATALAN [facility] #: [id number] UNIT #: [id number] ROOM: DOCTOR: MOI DIA MD BIRTHDATE: [birth year] DOS: 07/13/2019 HISTORY OF PRESENT ILLNESS: This is an 82-year-old patient who presented with chief complaint of malfunctioning PEG tube. He has been taken care of by his at home. The PEG site has been painful as well as fallen out partially, noninfusing quite precarious position leaking PEG site. The patient was advised to come to the [place] operating area for evaluation and consultation. 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 PAST SURGICAL HISTORY: Tracheostomy and removal, status post PEG tube in the past. Prostate CA, left hip, pacemaker. ALLERGIES: SULFA. MEDICATIONS: List reviewed. ALLERGIES: No known medication. REVIEW OF SYSTEMS: GENERAL: Not in ____ coherent; however denies double vision, blurred vision. RESPIRATORY: Denies shortness of breath. CARDIOVASCULAR: Denies chest pain. DIGESTIVE SYSTEM: Nausea, vomiting; however admits abdominal pain at the ostomy site. PHYSICAL EXAMINATION: VITAL SIGNS: Stable. HEENT: Benign. NECK: Supple, no thyromegaly, no cervical lymphadenopathy. CHEST: Symmetric anatomy, COPD character. HEART: Normal sinus rhythm, no gallop, no murmur. ABDOMEN: Soft, obese, no hepato-organomegaly. A broken PEG tube is sitting on the abdomen. Bowel sounds present. EXTREMITIES: No cyanosis, no pedal edema. NEUROLOGIC: Alert, orientation cannot be assessed. At this stage, the existing PEG tube percutaneously was removed ____ device size 22 was utilized. Site was a sterile technique approach and Neosporin ointment was added. The existing PEG tube was introduced into the old ostomy site. Gastric content is immediately flow through the tube, verify into position of the PEG tube, 10 mL of normal saline was infused in the balloon site. Douds was secured, additional straps were added. Functionality verified. The patient tolerated the procedure well. IMPRESSION: Neurogenic dysphagia, malfunctioning PEG tube, status post removal of G-tube replacement, new G-tube. PLAN AND DISCUSSION: Resumption of feeding and medication from now. [place], [place] REPORT OF CONSULTATION NAME: RICO CATALAN UNIT #: [id number] ROOM: DOCTOR: IFEOMA GRESHAM,MOI BIRTHDATE: [birth year] MOI DIA MD CM:CONSTR:REPORT OF CONSULTATION 1259 07/13/19 1544 interface
[2019-07-13 10:38] VITALS: BP 145/75
== END | disposition home or self-care (01) ==
LOC: SDC 07-11 14:45
DX: K94.23 Gastrostomy malfunction (principal); I25.10 Atherosclerotic heart disease of native coronary artery without angina pectoris; I11.0 Hypertensive heart disease with heart failure; I50.9 Heart failure, unspecified; J44.9 Chronic obstructive pulmonary disease, unspecified; F41.9 Anxiety disorder, unspecified; F32.9 Major depressive disorder, single episode, unspecified; R13.19 Other dysphagia; Z98.890 Other specified postprocedural states; Z85.89 Personal history of malignant neoplasm of other organs and systems; Z82.49 Family history of ischemic heart disease and other diseases of the circulatory system; Y83.8 Other surgical procedures as the cause of abnormal reaction of the patient, or of later complication, without mention of misadventure at the time of the procedure; Y82.8 Other medical devices associated with adverse incidents